=== PATIENT | male | born 2000 ===

== ENCOUNTER 2021-07-13 21:08 | Emergency (ER) | payer SELFPAY ==
[2021-07-14] MEDS ORDERED: ONDANSETRON 4 MG ODT TAB PO/SL ONE (01:12)
[2021-07-14 01:35] LABS: Bacteria,Urine 1+ /HPF (Negative); Bilirubin,Urine NEG (Negative); Blood,Urine SM (Negative); Color,Urine Straw (Yellow); Mucus,Urine FEW /HPF; Protein,Urine <15 mg/dL mg/dL (Negative); Urobilinogen,Urine < 2.0 mg/dL (<2.0)
--- NOTE | 2021-07-14 01:54 | XRay Report ---
ABDOMEN 1 VIEW(S) INDICATION / CLINICAL INFORMATION: Abdominal Pain. COMPARISON: None available. FINDINGS: TUBES / LINES: None. BOWEL GAS PATTERN: Moderate colonic stool at the right colon. No bowel distention. ADDITIONAL FINDINGS: No significant additional findings. Signer Name: Abdon Cohen MD Signed: 07/14/2021 1:50 AM Workstation Name: [id number]
[2021-07-14 05:14] LABS: Basophils % (Auto) 0.3 % (0.0-1.8); Eosinophils # (Auto) 0.1 K/mm3 (0.0-0.4); Eosinophils % (Auto) 1.1 % (0.0-4.3); Hematocrit 49.4 % (35.5-45.6); Hemoglobin 17.2 gm/dl (11.8-15.2); Lymphocytes # (Auto) 1.2 K/mm3 (1.2-5.4); Lymphocytes % (Auto) 13.8 % (13.4-35.0); Mean Corpuscular HGB Conc 35 % (32-34); Mean Corpuscular Volume 92 fl (84-94); Monocytes # (Auto) 0.6 K/mm3 (0.0-0.8); Monocytes % (Auto) 7.1 % (0.0-7.3); Platelet Count 239 K/mm3 (140-440); Red Blood Count 5.38 M/mm3 (3.65-5.03)
[2021-07-14 05:22] LABS: Albumin 5.1 g/dL (3.9-5); Calcium 10.4 mg/dL (8.4-10.2)
--- NOTE | 2021-07-14 06:27 | Emergency Department Report ---
<VERONICA LEONARD - Last Filed: 07/14/21 10:10> ED Abdominal Pain HPI - General Chief Complaint: Abdominal Pain Stated Complaint: ABD PAIN [id number] Time Seen by Provider: 07/14/21 03:57 - Related Data Allergies Allergy/AdvReac Type Severity Reaction Status Date / Time No Known Allergies Allergy Verified 07/14/21 04:05 ED Medical Decision Making - Lab Data Result diagrams: 07/14/21 04:19 07/14/21 04:19 ED Disposition Clinical Impression: Abdominal pain, Renal insufficiency Disposition: 01 HOME / SELF CARE / HOMELESS Is pt being admited?: No Does the pt Need Aspirin: No Condition: Stable Instructions: Abdominal Pain, Adult, Creatinine Clearance Test Referrals: PRIMARY MD ABDULLAHI [Primary Care Provider] - 3-5 Days AILEEN PINTO MD [Staff Physician] - 3-5 Days Forms: Work/School Release Form(ED) Time of Disposition: 10:10 <MYRA AU - Last Filed: 07/19/21 21:39> ED Abdominal Pain HPI - General Source: patient Mode of arrival: Ambulatory Limitations: No Limitations - History of Present Illness Initial Comments: 21-year-old male presents emerged part complaining of 10/day of vague lower abdominal pain off and on spontaneously improving past couple days reports no fever, chills, sweats, no nausea, no vomiting, no chest pain, no palpitations. -: Gradual Location: suprapubic Radiation: none Migration to: no migration Quality: aching, dull Consistency: constant Improves With: nothing Worsens With: nothing Associated Symptoms: denies: diarrhea, constipation, dysuria, hematemesis, hematochezia, hematuria, syncope ED Review of Systems ROS: Stated complaint: ABD PAIN [id number] Other details as noted in HPI Comment: All other systems reviewed and negative ED Physical Exam - General Limitations: No Limitations General appearance: alert, in no apparent distress - Head Head exam: Present: atraumatic, normocephalic - Eye Eye exam: Present: normal appearance, PERRL, EOMI Pupils: Present: normal accommodation - ENT ENT exam: Present: normal exam, normal orophraynx, mucous membranes moist - Neck Neck exam: Present: normal inspection - Respiratory Respiratory exam: Present: normal lung sounds bilaterally. Absent: respiratory distress - Cardiovascular Cardiovascular Exam: Present: regular rate, normal rhythm. Absent: systolic murmur, diastolic murmur, rubs, gallop - GI/Abdominal GI/Abdominal exam: Present: soft, normal bowel sounds - Rectal Rectal exam: Present: deferred - Extremities Exam Extremities exam: Present: normal inspection - Back Exam Back exam: Present: normal inspection - Neurological Exam Neurological exam: Present: alert, oriented X3 - Psychiatric Psychiatric exam: Present: normal affect, normal mood - Skin Skin exam: Present: warm, dry, intact, normal color. Absent: rash ED Course Vital Signs 07/14/21 07/14/21 01:06 10:22 Temperature 99.6 F 98.9 F Pulse Rate 101 H 88 Respiratory 18 18 Rate Blood Pressure 133/92 Blood Pressure 128/88 [Right] O2 Sat by Pulse 96 97 Oximetry ED Medical Decision Making - Lab Data Result diagrams: 07/14/21 04:19 07/14/21 04:19 Lab Results 07/14/21 07/14/21 07/14/21 Range/Units 04:19 04:19 Unknown WBC 8.9 (4.5-11.0) K/mm3 RBC 5.38 H (3.65-5.03) M/mm3 Hgb 17.2 H (11.8-15.2) gm/dl Hct 49.4 H (35.5-45.6) % MCV 92 (84-94) fl MCH 32 (28-32) pg MCHC 35 H (32-34) % RDW 13.0 L (13.2-15.2) % Plt Count 239 (140-440) K/mm3 Lymph % (Auto) 13.8 (13.4-35.0) % [place] % (Auto) 7.1 (0.0-7.3) % Eos % (Auto) 1.1 (0.0-4.3) % Baso % (Auto) 0.3 (0.0-1.8) % Lymph # (Auto) 1.2 (1.2-5.4) K/mm3 [place] # (Auto) 0.6 (0.0-0.8) K/mm3 Eos # (Auto) 0.1 (0.0-0.4) K/mm3 Baso # (Auto) 0.0 (0.0-0.1) K/mm3 Seg Neutrophils % 77.7 H (40.0-70.0) % Seg Neutrophils # 6.9 (1.8-7.7) K/mm3 Sodium 140 (137-145) mmol/L Potassium 4.6 (3.6-5.0) mmol/L Chloride 100.9 (98-107) mmol/L Carbon Dioxide 25 (22-30) mmol/L Anion Gap 19 mmol/L BUN 21 H (9-20) mg/dL Creatinine 2.0 H (0.8-1.3) mg/dL Estimated GFR 42 ml/min BUN/Creatinine Ratio 11 % Glucose 104 H (75-100) mg/dL Calcium 10.4 H (8.4-10.2) mg/dL Total Bilirubin 0.60 (0.1-1.2) mg/dL AST 27 (5-40) units/L ALT 86 H (7-56) units/L Alkaline Phosphatase 89 (35-129) units/L Total Protein 8.1 (6.3-8.2) g/dL Albumin 5.1 H (3.9-5) g/dL Albumin/Globulin Ratio 1.7 % Lipase 39 (13-60) units/L Urine Color Straw (Yellow) Urine Turbidity Clear (Clear) Urine pH 5.0 (5.0-7.0) Ur Specific [place] 1.006 (1.003-1.030) Urine Protein <15 mg/dl (Negative) mg/dL Urine Glucose (UA) Neg (Negative) mg/dL Urine Ketones Neg (Negative) mg/dL Urine Blood Sm (Negative) Urine Nitrite Neg (Negative) Urine Bilirubin Neg (Negative) Urine Urobilinogen < 2.0 (<2.0) mg/dL Ur Leukocyte Esterase Neg (Negative) Urine WBC (Auto) 7.0 H (0.0-6.0) /HPF Urine RBC (Auto) 3.0 (0.0-6.0) /HPF Urine Bacteria (Auto) 1+ (Negative) /HPF Urine Mucus Few /HPF - Radiology Data Radiology results: report reviewed [facility] [address] [place] [address] XRay Report Signed Patient: TAMIE PINA MR#: [id number] 01 : 2000 Acct:[id number] Age/Sex: 21 / M ADM Date: 07/13/21 Loc: ED Attending Dr: Ordering Physician: LOPEZ MACHADO MD Date of Service: 07/14/21 Procedure(s): XR abdomen 1V ap Accession Number(s): [id number] cc: LOPEZ MACHADO MD Fluoro Time In Minutes: ABDOMEN 1 VIEW(S) INDICATION / CLINICAL INFORMATION: Abdominal Pain. COMPARISON: None available. FINDINGS: TUBES / LINES: None. BOWEL GAS PATTERN: Moderate colonic stool at the right colon. No bowel distention. ADDITIONAL FINDINGS: No significant additional findings. Signer Name: Abdon Cohen MD Signed: 07/14/2021 1:50 AM Workstation Name: [id number] Transcribed By: ES Dictated By: Abdon Cohen MD Electronically Authenticated By: Abdon Cohen MD Signed Date/Time: 07/14/21149 DD/ 8 TD/TT: - Medical Decision Making This patient presents with abdominal pain of unclear etiology. Their evaluation has not identified a emergent etiology for the abdominal pain. Specifically, given the very benign exam, normal laboratory studies, and lack of significant risk factors, I have a very low suspicion for appendicitis, ischemic bowel, bowel perforation, or any other life threatening disease. I have discussed with the patient the level of uncertainty with undifferentiated abdominal pain and clearly explained the need to follow-up as noted on the discharge instructions, or return to the Emergency Department immediately if the pain worsens, develops fever, persistent and uncontrollable vomiting, or for any new symptoms or concerns. I discussed with the patient that this presentation today for abdominal pain could represent a significant risk for an acute abdominal process. Although the tests in the ED were essentially normal, there is still a possibility of a process such as appendicitis, diverticulitis, cholecystitis, ulcer, early bowel obstruction, mesenteric ischemia, kidney stone, or even kidney infection which could subsequently cause disability or . The patient understands that they must return within 24 hours for a recheck or see their physician within 24 hours for re-exam due to the possibility of significant surgical or medical process. . Critical care attestation.: If time is entered above; I have spent that time in minutes in the direct care of this critically ill patient, excluding procedure time. ED Disposition Is pt being admited?: No Does the pt Need Aspirin: No
[2021-07-14] MEDS ORDERED: ONDANSETRON 4 MG/2 ML INJ ONE (06:33)
[2021-07-14] MEDS: SODIUM CHLORIDE 0.9% 1000 ML 1,000 ML IV ONE (08:47)
[2021-07-14 10:25] VITALS: BP 128/88
== END 2021-07-14 10:22 | disposition home or self-care (01) ==
LOC: ED 21:08
DX: R10.9 Unspecified abdominal pain (principal)
CPT/HCPCS: 36415; 74018; 80053; 81001; 83690; 85025; 96360; 99283; J2405; J7030